=== PATIENT | female | born 1975 | race Caucasian/White ===

== ENCOUNTER 2024-01-05 10:23 | Emergency (ER) | payer OTHER ==
[~2024-01-05] VITALS: Ht 152.4 cm; Wt 64.8 kg
[~2024-01-05 10:23] MED LIST: HYDR-3547; IBUP-1456; METH-562
[2024-01-05 11:45] LABS: Basophils # (auto) 0.1 10 ^3/uL (0-0.2); Basophils % (auto) 0.7 % (0.0-2.0); Eosinophils # (auto) 0.1 10 ^3/uL (0-0.8); Eosinophils % (auto) 0.5 % (0.0-7.0); Hematocrit 36.3 % (36.0-46.0); Hemoglobin 12.6 g/dL (12.2-16.2); Lymphocytes % (auto) 18.4 % (10.0-50.0); Mean Corpuscular Hemoglobin 31.9 pg (28.0-32.0); Mean Corpuscular Hgb Conc. 34.7 g/dL (32.0-36.0); Mean Corpuscular Volume 91.9 fL (80.0-100.0); Monocytes # (auto) 0.4 10 ^3/uL (0-1.3); Neutrophils # (auto) 8.2 10 ^3/uL (1.6-8.6); Neutrophils % (auto) 76.4 % (37.0-80.0); Platelet Count (auto) 292 10^3/uL (140-450); Red Blood Cells 3.94 10^6/uL (4.0-5.20); Red Cell Distribution Width 15.1 % (11.8-14.3); White Blood Cell 10.8 10^3/uL (4.4-10.8)
[2024-01-05 11:58] LABS: Chloride 108 mmol/L (98-107); Potassium 4.6 mmol/L (3.5-5.1); Sodium 141 mmol/L (136-145)
[2024-01-05 11:59] LABS: Calcium 10.1 mg/dL (8.7-10.4)
[2024-01-05 12:04] LABS: Alkaline Phosphatase 60 U/L (46-116); Glucose 87 mg/dL (74-106)
[2024-01-05 12:05] LABS: BUN/Creatinine Ratio 5.2 (10.0-20.0); Blood Urea Nitrogen < 5 mg/dL (9-23)
[2024-01-05 12:06] LABS: Albumin 4.5 g/dL (3.2-4.8); Aspartate Aminotransferase 27 U/L (13-40); Bilirubin, Total 0.3 mg/dL (0.2-1.0); Total Protein 7.8 g/dL (5.7-8.2)
[2024-01-05 12:14] LABS: Anion Gap 5 (5-15); Carbon Dioxide 28 mmol/L (20-30)
[2024-01-05 12:19] LABS: Urine Bacteria FEW /hpf (None Seen); Urine Blood 3+ /uL (Negative); Urine Budding Yeast OCCASIONAL /hpf (None Seen); Urine Protein, UAD Negative (Negative); Urine Specific Gravity 1.009 (1.001-1.035); Urine Urobilinogen Normal (Negative); Urine WBC 53 /hpf (0 - 5); Urine pH 6.5 (5.0-9.0)
[2024-01-05 12:20] LABS: Urine Clarity Cloudy (Clear); Urine Color Light-Yellow (Yellow)
[2024-01-05 12:21] LABS: Alanine Aminotransferase 19 U/L (7-40)
[2024-01-05] MEDS ORDERED: KETOROLAC TROMETH 60MG/2ML VIAL IM ONE (14:00)
[2024-01-05] MEDS ORDERED: TAMS-35 PO (14:02)
[2024-01-05] MEDS ORDERED: NAP500T GT (14:02)
[2024-01-05] MEDS ORDERED: CEPH250C PO (14:05)
[2024-01-05] MEDS: TAMSULOSIN HYDROCHLORIDE 0.4 MG CAP PO ONE (14:13)
[2024-01-05 14:15] VITALS: TEMP 98
[2024-01-05] MEDS ORDERED: ACET500T58 PO (14:18)
[2024-01-05] MEDS: MORPHINE SULFATE INJ 2 MG/ml SYRG IM ONE (14:21)
[2024-01-05 15:08] VITALS: O2SAT 97
[2024-01-05 15:09] VITALS: BP 124/81; PULSE 81; RESP 15
== END 2024-01-05 15:10 | disposition home or self-care (01) ==
LOC: ER 10:23
DX: N23 Unspecified renal colic (principal); F17.210 Nicotine dependence, cigarettes, uncomplicated; Z90.710 Acquired absence of both cervix and uterus; Z90.49 Acquired absence of other specified parts of digestive tract; Z88.6 Allergy status to analgesic agent
CPT/HCPCS: 36415; 74176; 80053; 81001; 85025; 96372; 99285; J2270; J1885